=== PATIENT | male | born 1950 | race Two or more races ===

== ENCOUNTER → 2017-01-31 | Outpatient (CLI) | payer MEDICARE | END | disposition home or self-care (01) | LOC: CDC 14:01 | DX: Z01.810 Encounter for preprocedural cardiovascular examination (principal) | CPT/HCPCS: 93000 ==

== ENCOUNTER 2017-03-14 20:22 | Emergency (ER) | payer OTHER ==
[~2017-03-14] VITALS: Ht 175.3 cm; Wt 82.7 kg
[2017-03-14 21:36] LABS: HEMATOCRIT 41.7 % (38.0-50.0); MCH 31.1 PG (29.0-34.0); MCHC 33.6 G/DL (30.0-36.0); MCV 92.7 FL (86-99); PLATELET COUNT 177 K/uL (156-360); RBC DIS.WIDTH-CV 14.1 % (11.8-14.6); RBC DIS.WIDTH-SD 48.1 % (39-53); WHITE BLOOD COUNT 5.8 K/uL (4.1-10.2)
[2017-03-14 21:47] LABS: CHLORIDE 102 mEq/L (99-109); POTASSIUM 3.9 mEq/L (3.7-5.4); SODIUM 135 mEq/L (136-147)
[2017-03-14 21:48] LABS: GLUCOSE 111 mg/dL (70-99)
[2017-03-14 21:52] LABS: CREATININE 1.1 mg/dL (0.6-1.3); GFR ESTIMATE (CALCULATED) > 59 mL/min/ (58.99-99999)
[2017-03-14 21:53] LABS: UREA NITROGEN (BUN) 12 mg/dL (9-23)
[2017-03-14] MEDS ORDERED: TAMIFLU75 MG PO (22:44)
[2017-03-14 22:51] VITALS: BP 116/74
== END 2017-03-14 22:57 | disposition home or self-care (01) ==
LOC: EME 20:22
PROVIDERS: Nurse Practitioner Family
DX: J10.1 Influenza due to other identified influenza virus with other respiratory manifestations (principal); I10 Essential (primary) hypertension; E11.9 Type 2 diabetes mellitus without complications; Z79.84 Long term (current) use of oral hypoglycemic drugs; Z79.82 Long term (current) use of aspirin
CPT/HCPCS: 71046; 80048; 85027; 87502; 87651 90; 93005; 99281; 99284